=== PATIENT | female | born 1955 | race Two or more races ===

== ENCOUNTER 2017-05-02 08:47 | Day surgery (SDC) | payer OTHER ==
[~2017-05-02 08:47] MED LIST: AMARYL; AVAPRO75 MG PO
[2017-05-02] MEDS ORDERED: JANUVIA100 MG PO (09:09)
[2017-05-02] MEDS ORDERED: AVALIDE PO (09:10)
[2017-05-02] MEDS ORDERED: COREG PO (09:10)
[2017-05-02] MEDS ORDERED: ACTOS30 MG PO (09:11)
[2017-05-02] MEDS ORDERED: LIPITOR40 MG PO (09:11)
[2017-05-02] MEDS ORDERED: SINGULAIR 10MG10 MG PO (09:11)
[2017-05-02] MEDS ORDERED: ADVAIR HFA 230/12 GM IH (09:12)
[2017-05-02] MEDS ORDERED: PLAVIX75 MG PO (09:12)
[2017-05-02] MEDS ORDERED: PERCOCET 5-3251 EACH PO (15:33)
== END 2017-05-02 19:10 | disposition home or self-care (01) ==
LOC: CIR.AMB 08:47
DX: S52.532A Colles' fracture of left radius, initial encounter for closed fracture (principal); M81.0 Age-related osteoporosis without current pathological fracture; E11.9 Type 2 diabetes mellitus without complications; I10 Essential (primary) hypertension
CPT/HCPCS: 25609; 20902; C1776

== ENCOUNTER 2020-09-23 11:31 | Outpatient (CLI) | payer OTHER ==
[~2020-09-23 11:31] MED LIST changes: +ACTOS30 MG PO; +ADVAIR HFA 230/12 GM IH; +AVALIDE PO; +COREG PO; +JANUVIA100 MG PO; +LIPITOR40 MG PO; +PERCOCET 5-3251 EACH PO; +PLAVIX75 MG PO; +SINGULAIR 10MG10 MG PO
== END 2020-09-23 13:03 | disposition home or self-care (01) ==
LOC: OFIC 805 11:31
PROVIDERS: ATTEND Otolaryngology Otology & Neurotology
DX: L29.8 Other pruritus (principal); J39.2 Other diseases of pharynx; H91.93 Unspecified hearing loss, bilateral

== ENCOUNTER 2024-10-07 08:15 | Outpatient (CLI) | payer OTHER | END 2024-10-07 08:18 | disposition home or self-care (01) | LOC: SONOGRAMA 08:15 | PROVIDERS: ATTEND Pathology Anatomic Pathology & Clinical Pathology | DX: D34 Benign neoplasm of thyroid gland (principal); E07.89 Other specified disorders of thyroid; E04.2 Nontoxic multinodular goiter ==